=== PATIENT | male | born 1935 | race Caucasian/White ===

== ENCOUNTER → 2017-04-08 | Outpatient (CLI) | payer OTHER, BC | END | disposition home or self-care (01) | LOC: C.PATHSPEC 15:01 | PROVIDERS: ATTEND Urology | DX: C61 Malignant neoplasm of prostate (principal); R97.20 Elevated prostate specific antigen [PSA]; N40.2 Nodular prostate without lower urinary tract symptoms ==

== ENCOUNTER → 2017-04-22 | Outpatient (CLI) | payer OTHER, BC ==
[~2017-04-22] MED LIST: OPTIRAY 320 IV PRN
--- NOTE | 2017-04-22 12:50 | DIAGNOSTIC IMAGING REPORT ---
ABD/PELVIS IV AND ORAL CONT CT DOSE: 656.16 mGycm HISTORY: Prostate carcinoma C61 Prostate cancer latex allergy, no iodine allergy, not tico TECHNIQUE: Multiaxial CT images of the abdomen and pelvis were performed following the use of intravenous and oral contrast. A dose lowering technique was utilized adhering to the principles of ALARA. COMPARISON STUDY: None. FINDINGS: Bibasilar parenchymal nodules measuring from 2 to 4 mm. These are noncalcified. Although somewhat atypical for metastatic prostate carcinoma, dynamic lesser concern the CT of the chest suggested. No basilar infiltrative change. Liver enhances uniformly. Spleen and pancreas are unremarkable. Right kidney demonstrates an extrarenal pelvis but is otherwise unremarkable. Left kidney demonstrates prominence of the renal pelvis with mild fullness of the left ureter. A well-defined obstructing lesion is not identified although the prostate is enlarged. Bladder is midline. Bowel pattern is considered nonobstructive throughout. No significant retroperitoneal or pericardial adenopathy is appreciated. There is a fat-containing left inguinal hernia. Pelvic bowel pattern is nonobstructive. There is no significant pelvic or inguinal adenopathy. The osseous structures show no definite bony blastic or lytic changes. IMPRESSION: 1. Basilar pulmonary nodularity raising the possibility of metastatic disease. 2. Prostatic enlargement. 3. Mild left renal hydroureteronephrosis of uncertain etiology. 4. Right extrarenal pelvis. This is considered an anatomic variant. 5 no additional evidence for metastatic change. 6. CT of the chest is suggested as follow-up. The above report was generated using voice recognition software. It may contain grammatical, syntax or spelling errors. Electronically signed by: Jos Mcmanus M.D. 04/22/2017 12:48 PM Dictated Date/Time: 04/22/2017 12:41 PM
--- NOTE | 2017-04-22 15:22 | DIAGNOSTIC IMAGING REPORT ---
BONE SCAN WHOLE BODY HISTORY: Pain. Nausea. C61 Prostate cancer latex allergy, no iodine allergy, not tico RADIOTRACER: 25.6 mCi Tc-99m MDP STUDY/IMAGES: Planar anterior and posterior whole body imaging was performed 3 hours following the intravenous administration of radiotracer. COMPARISON: CT abdomen and pelvis same date FINDINGS: Mild left renal hydronephrosis. Normal activity characteristics of the right kidney. Activity characteristics in the axial and appendicular skeleton are unremarkable. Bladder activity is normal. There are no abnormal soft tissue foci of increased activity. IMPRESSION: 1. Mild left renal hydronephrosis of uncertain etiology. 2. Bone scan is otherwise negative. 3. No evidence for metastatic bone disease. The above report was generated using voice recognition software. It may contain grammatical, syntax or spelling errors. Electronically signed by: Jos Mcmanus M.D. 04/22/2017 3:21 PM Dictated Date/Time: 04/22/2017 3:19 PM
== END | disposition home or self-care (01) ==
LOC: C.CTS 10:09
PROVIDERS: ATTEND Urology
DX: C61 Malignant neoplasm of prostate (principal)